=== PATIENT | male | born 1965 ===

== ENCOUNTER 2024-06-04 15:11 | Inpatient (IN) | payer SELFPAY ==
[~2024-06-04] VITALS: Ht 177.8 cm; Wt 70.5 kg
--- NOTE | 2024-06-04 16:35 | NUR ---
DIRECT ADMIT: PATIENT ARRIVED TO THE UNIT AT 1624 VIA GURNEY. PATIENT WAS ABLE TO SELF TRANSFER TO BED. PER MEDICAL TRANSPORTER THEY DID HAVE TO PUT THE PATIET ON 2 L OF NASAL CANNULA O2 TO MAINTAIN AN OXYGEN SATURATION OF 92%. PATIENT PLACED ON 2 L IN THE ROOM. PATIENT SETTLED IN ROOM AND ADMITTING PROVIDER NOTIFIED OF ADMIT. NO SIGNS OR SYMPTOMS OF DISTRESS, PLAN OF CARE ONGOING.
[2024-06-04 16:42] VITALS: BP 108/78
[2024-06-04] MEDS ORDERED: FLU VACC TS2024-25(6MOS UP)/PF 45 MCG/0.5 ML SYRINGE IM ONE (17:25)
[2024-06-04] MEDS ORDERED: Ondansetron HCl 2 MG / ML 2ML Vial IV PRN (17:25)
[2024-06-04] MEDS ORDERED: MULVITA PO (17:59)
[2024-06-04 18:45] LABS: Magnesium, Blood 1.9 mg/dL (1.6-2.4)
[2024-06-04 18:47] LABS: Thyroid Stimulating Hormone 6.06 uIU/mL (0.360-4.800)
[2024-06-04 19:48] VITALS: BP 85/65
[2024-06-05] VITALS (21 sets, daily range): BP systolic 68–113; BP diastolic 50–82
--- NOTE | 2024-06-05 04:28 | NUR ---
SHIFT SUMMARY PATIENT HAD NO ACUTE CHANGES. ALERT ORIENTED AND INDEPENDENT IN ROOM. ON 2L O2 NC AND RA BASELINE. PIV INTACT. DENIES CHEST PAIN, SOB, AND N/V. AFEBRILE. COOPERATIVE WITH CARE. CALL LIGHT IN REACH. BED IN LOWEST POSITION. WILL CONTINUE TO MONITOR UNTIL DAY SHIFT NURSE ASSUMES CARE.
[2024-06-05 05:42] LABS: Hematocrit 40.7 % (37.0-53.0); Hemoglobin 13.1 g/dL (13.5-17.5); Mean Corpuscular HGB 28.2 pg (26.0-34.0); Mean Corpuscular HGB Conc 32.2 g/dL (31.5-36.5); Mean Corpuscular Volume 88 fL (80-100); Mean Platelet Volume 12.1 fL (9.1-12.4); Platelet Count 161 K/mm3 (150-400); RDW Coefficient Variation 15.8 % (11.7-14.2); RDW Standard Deviation 50.3 fL (35.1-46.3); Red Blood Cell Count 4.64 M/mm3 (4.30-5.90); White Blood Cell Count 8.58 K/mm3 (4.00-11.30)
[2024-06-05 06:06] LABS: Bun/Creatinine Ratio 22.9 (12.0-20.0); Creatinine, Blood 1.09 mg/dL (0.60-1.20); Free Thyroxine 1.18 ng/dL (0.70-1.60); Potassium, Blood 4.3 mmol/L (3.5-5.5)
[2024-06-05] MEDS ORDERED: FLU VACC TS2024-25(6MOS UP)/PF 45 MCG/0.5 ML SYRINGE IM ONE (09:00)
[2024-06-05] MEDS ORDERED: Enoxaparin 40 MG/0.4 ML SYR SC SCH (09:00)
[2024-06-05] MEDS ORDERED: Furosemide 10 MG/ML 4ML Vial IV SCH ×2 (09:00→18:00)
[2024-06-05 11:48] LABS: CHOL/HDL RATIO 4.1; Cholesterol 198 mg/dL (50-200); HDL Cholesterol 48 mg/dL (>39); LDL/HDL RATIO 2.8; Low Density Lipoprotein Chol 136 mg/dL (0-110); Triglycerides 70 mg/dL (30-160); Very Low Density Lipoprot Chol 14 mg/dL (6-32)
[2024-06-05] MEDS ORDERED: Empagliflozin 10 MG TAB PO SCH (12:00)
[2024-06-05] MEDS ORDERED: NS 250 ML IV ONE (12:36)
[2024-06-05] MEDS ORDERED: NS 1,000 ML IV ONE (12:36)
[2024-06-05] MEDS ORDERED: Heparin Sodium 1000 Units/ML 10ML MDV ONE (12:36)
[2024-06-05] MEDS ORDERED: NiCARdipine HCL 1,000 MCG/5 ML SYR ONE (12:37)
[2024-06-05] MEDS ORDERED: Nitroglycerin 2 MG/20 ML BTL ONE (12:37)
[2024-06-05] MEDS ORDERED: NS 500 ML IV ONE (12:47)
[2024-06-05] MEDS ORDERED: Midazolam HCl 1MG / ML 2ML Vial ONE (12:47)
[2024-06-05] MEDS ORDERED: FentaNYL Citrate 50 MCG/ML 2 ML Injection ONE (12:47)
[2024-06-05] MEDS ORDERED: Phenylephrine HCl 100 MCG/ML-NS 10MLSYR (1MG/10ML) ONE (13:47)
--- NOTE | 2024-06-05 14:25 | NUR ---
arrival to pcu patient arrived to pcu at 1219. vital signs stable. tele sius rhythm 80s. on 2l nc since having angio done with spo2 >90%, will titrate back to room air. patient is alert and oriented x 4. patient is able to make needs known and uses call light appropriately. patient denies pain, chest pain/pressure or shortness of breath. see shift assessment for further detials.
--- NOTE | 2024-06-05 18:22 | NUR ---
shift summary patient tr band is fully deflated, and can removed tr band at 1922 to new dressing. patient is aware. site is soft nontender no bleeding or swelling. no acute changes since previous note. blood pressure remain on the softer side. see vitals. md drake aware of blood pressure. plan remains up to date
[2024-06-06] VITALS (18 sets, daily range): BP systolic 77–105; BP diastolic 57–82
--- NOTE | 2024-06-06 04:21 | NUR ---
SHIFT SUMMARY 58 YR M ADMITTED ON 06/04/24. FULL CODE. PT HAS VERY SOFT BP THAT IS AVERAGING MOSTLY IN THE 80'S BUT OCCASIONALLY DIPPING INTO THE 70'S. AT ONE POINT IT WENT HIGH 105. PER COMMERCIAL PROPERTY MANAGER PT HAD A 9 SECOND RUN OF SVT @ 0000. TR BAND REMOVED @ 1999. SITE WNL AND COVERED W/ GAUZE AND COBAN. PT IS A&O X 4 AND PLEASANT AND COOPERATIVE WITH CARE. HE SLAEPT FOR MOST OF THIS SHIFT. BED IN LOW POSITION AND CALL LIGHT IN REACH.
[2024-06-06 04:53] LABS: BASOPHILS ABSOLUTE AUTO 0.08 K/mm3 (0.00-0.23); BASOPHILS PERCENT AUTO 1 % (0-2); EOSINOPHILS ABSOLUTE AUTO 0.18 K/mm3 (0.00-0.68); EOSINOPHILS PERCENT AUTO 2 % (0-6); Hematocrit 39.2 % (37.0-53.0); Hemoglobin 12.4 g/dL (13.5-17.5); IMMATURE GRAN ABSOLUTE AUTO 0.03 K/mm3 (0.00-0.10); IMMATURE GRAN PERCENT AUTO 0 % (0-1); LYMPHOCYTES ABSOLUTE AUTO 1.46 K/mm3 (0.84-5.20); LYMPHOCYTES PERCENT AUTO 19 % (21-46); MONOCYTES PERCENT AUTO 13 % (4-13); Mean Corpuscular HGB 28.2 pg (26.0-34.0); Mean Corpuscular HGB Conc 31.6 g/dL (31.5-36.5); Mean Corpuscular Volume 89 fL (80-100); Mean Platelet Volume 12.4 fL (9.1-12.4); NEUTROPHILS ABSOLUTE AUTO 5.04 K/mm3 (1.96-9.15); NEUTROPHILS PERCENT AUTO 65 % (41-73); Platelet Count 146 K/mm3 (150-400); RDW Coefficient Variation 15.4 % (11.7-14.2); RDW Standard Deviation 50.8 fL (35.1-46.3); White Blood Cell Count 7.79 K/mm3 (4.00-11.30)
[2024-06-06 05:40] LABS: Bun/Creatinine Ratio 24.2 (12.0-20.0); Creatinine, Blood 1.2 mg/dL (0.60-1.20); Potassium, Blood 4.2 mmol/L (3.5-5.5)
[2024-06-06] MEDS ORDERED: Furosemide 20 MG Tab PO SCH (09:00)
--- NOTE | 2024-06-06 09:36 | NUR ---
AM Summary Assumed care at 0700, pt sleeping in bed comfrotably. Radial site shows no signs of bruising, bleeding, or swelling. Upon waking, pt is alert and oriented x4. BP systolic 105, HR in 70s. Pt intially on 2L NC but titrated down to room air and maintaining >90% SP02. Trace edema noted in BLE. Dr Patel into room this morning recommending outpatient TAVR, cardiology follow up, and holding beta-blockers until procedure is complete due to consistently low BPs. Dr Razo and team into see pt, evaluate pts ability to maintain 02 sats while ambulating and potentially discharge home today. Plan of care up to date.
--- NOTE | 2024-06-06 10:32 | NUR ---
Update Ambulated pt in room on room air to assess for supplemental oxygen needs, SP02 maintained >90%. Will continue plan of care.
[2024-06-06] MEDS ORDERED: JARDIANCE10 MG PO (11:59)
[2024-06-06] MEDS ORDERED: FURO20 PO (12:00)
--- NOTE | 2024-06-06 12:33 | NUR ---
DISCHARGE NOTE PT GIVEN DISCHARGE INSTRUCTIONS VERBALLY AND IN PRINT. PT TO FOLLOW UP WITH CARDIOLOGY FOR TAVR AND OBTAIN PCP. PT TO START TWO NEW MEDICATIONS, EDUCATION GIVEN VERBALLY AND IN PRINT. PRESCRIPTION GIVEN FOR PATIENT TO NOT ATTEND TO WORK UNTIL PT CAN HAVE TAVR PROCEDURE. PT DENIED HAVING ANY FURTHER QUESTIONS. IV REMOVED AND DRESSED WITH GAUZE AND COBAN. TELE REMOVED. PT WAS ESCORTED TO THE EXIT IN A WHEELCHAIR AND LEFT WITH ALL PERSONAL BELONGINGS.
== END 2024-06-06 12:45 | disposition home or self-care (01) | DRG 286 ==
LOC: MEDS 15:11 → PCU 06-05 13:24 → MEDS 06-05 13:24 → PCU 06-05 14:20
PROVIDERS: Internal Medicine Cardiovascular Disease; Nurse Practitioner Acute Care; Student in an Organized Health Care Education/Training Program; ADMIT Internal Medicine
PROC: 4A023N6 Measurement of Cardiac Sampling and Pressure, Right Heart, Percutaneous Approach (ICD-10-PCS; principal; 2024-06-05)
PROC: B211YZZ Fluoroscopy of Multiple Coronary Arteries using Other Contrast (ICD-10-PCS; 2024-06-05)
PROC: 3E02340 Introduction of Influenza Vaccine into Muscle, Percutaneous Approach (ICD-10-PCS; 2024-06-05)
DX: I50.21 Acute systolic (congestive) heart failure (principal); J96.01 Acute respiratory failure with hypoxia; Z23 Encounter for immunization; I35.0 Nonrheumatic aortic (valve) stenosis; Z91.018 Allergy to other foods; Z79.899 Other long term (current) drug therapy; I45.10 Unspecified right bundle-branch block; F17.210 Nicotine dependence, cigarettes, uncomplicated; E03.9 Hypothyroidism, unspecified; I25.10 Atherosclerotic heart disease of native coronary artery without angina pectoris
CPT/HCPCS: 36415; 80048; 80061; 83735; 83880; 84145; 84439; 84443; 84484; 85025; 85027; 90656; 93005; 93010; 93306; 93456; 93880; 94760; 96372; 96374; 99152; A9270; C1769; C1894; G0378; G0379; J1644; J1650; J1940; J2250; J2371; J3010; J7030; J7040; J7050; Q9967